=== PATIENT | female | born 1985 | race Caucasian/White ===

== ENCOUNTER 2019-03-23 18:19 | Observation (INO) ==
[2019-03-23 19:23] LABS: Bilirubin,Urine Negative (Negative); Blood,Urine Small (Negative); Clarity,Urine Cloudy (Clear); Color,Urine Yellow (Yellow); Glucose,Urine (UA) Normal (Normal); Ketones,Urine Negative (Negative); Leukocyte Esterase,Urine Negative (Negative); Nitrite,Urine Negative (Negative); PH,Urine 6.5 pH Units (5.0-8.0); Protein,Urine Negative (Neg-Trace); Specific Gravity,Urine 1.024 (1.010-1.025); Urobilinogen,Urine Normal (Normal)
[2019-03-23 19:24] LABS: Bacteria,Urine Few per hpf (None-Few); Hyaline Casts,Urine None Seen per lpf (None-Few); Squamous Epithelial Cell,Urine Many per lpf (None-Few)
[2019-03-23 19:32] LABS: Amphetamine Screen,Urine Negative ng/mL (Cutoff=1000); Barbiturate Screen,Urine Negative ng/mL (Cutoff=200); Benzodiazepines Screen,Urine Negative ng/mL (Cutoff=200); Cannabinoid Screen,Urine Negative ng/mL (Cutoff = 50); Cocaine Screen,Urine Negative ng/mL (Cutoff= 300); Opiate Screen,Urine Negative ng/mL (Cutoff=300); Phencyclidine Screen,Urine Negative ng/mL (Cutoff=25)
[2019-03-23 19:42] LABS: Calcium Oxalate Crystals,Urine Present; RBC,Urine 0-3 per hpf (0-3)
== END 2019-03-23 20:16 | disposition home or self-care (01) ==
LOC: 1NENULAB
PROVIDERS: ADMIT Advanced Practice Midwife; ATTEND Advanced Practice Midwife

== ENCOUNTER 2019-03-26 18:40 | Observation (INO) ==
[2019-03-26] MEDS ORDERED: Ringers Solution, Lactated 1,000 ML IVC ONE (19:02)
[2019-03-26 19:16] LABS: Bilirubin,Urine Negative (Negative); Blood,Urine Small (Negative); Clarity,Urine Clear (Clear); Color,Urine Yellow (Yellow); Glucose,Urine (UA) Normal (Normal); Ketones,Urine 15 mg/dL (Negative); Leukocyte Esterase,Urine Negative (Negative); Nitrite,Urine Negative (Negative); PH,Urine 6.5 pH Units (5.0-8.0); Protein,Urine Negative (Neg-Trace); Urobilinogen,Urine Normal (Normal)
[2019-03-26 19:18] LABS: Bacteria,Urine None Seen per hpf (None-Few); Hyaline Casts,Urine None Seen per lpf (None-Few); RBC,Urine 0-3 per hpf (0-3); Squamous Epithelial Cell,Urine Many per lpf (None-Few); WBC,Urine 0-3 per hpf (0-3)
[2019-03-26 19:27] LABS: Amphetamine Screen,Urine Negative ng/mL (Cutoff=1000); Barbiturate Screen,Urine Negative ng/mL (Cutoff=200); Benzodiazepines Screen,Urine Negative ng/mL (Cutoff=200); Cannabinoid Screen,Urine Negative ng/mL (Cutoff = 50); Cocaine Screen,Urine Negative ng/mL (Cutoff= 300); Opiate Screen,Urine Negative ng/mL (Cutoff=300); Phencyclidine Screen,Urine Negative ng/mL (Cutoff=25)
[2019-03-26] MEDS ORDERED: Ondansetron 4 MG/2 ML VIAL IVP PRN (19:56)
[2019-03-26] MEDS ORDERED: Ondansetron 4 MG/2 ML VIAL ONE (19:59)
[2019-03-26] MEDS: *HR* HYDROmorphone (PF) 1 MG/ML SYRINGE IVP PRN (20:09)
[2019-03-26] MEDS ORDERED: Acetaminophen 325 MG TABLET PO PRN (20:28)
[2019-03-26 20:33] LABS: Basophils # 0.1 K/mcL (0.0-0.2); Basophils % 0.3 %; Eosinophils # 0.1 K/mcL (0.0-0.6); Eosinophils % 0.3 %; Hemoglobin 12.6 g/dL (11.5-15.4); Immature Granulocytes % 0.9 % (0-4); Lymphocytes # 1.5 K/mcL (0.6-4.6); Lymphocytes % 9.4 %; Mean Corpuscular HGB Conc 34.1 g/dL (31.6-35.5); Mean Corpuscular Hemoglobin 33.7 pg (28.0-33.3); Mean Corpuscular Volume 98.9 fL (83.0-100.0); Mean Platelet Volume 9.3 fL (9.4-12.4); Monocytes % 6.4 %; Neutrophils # 13.4 K/mcL (1.6-8.9); Platelet Count 257 K/mcL (140-400); Red Blood Count 3.74 M/mcL (3.82-4.97); Segmented Neutrophils % 82.7 %; White Blood Count 16.2 K/mcL (4.3-11.1)
[2019-03-26 20:53] LABS: Alanine Aminotransferase 12 Units/L (7-52); Albumin 3.6 g/dL (3.5-5.7); Albumin/Globulin Ratio 1.2 (1.1-2.2); Alkaline Phosphatase 67 Units/L (34-104); Aspartate Amino Transferase 17 Units/L (13-39); BUN/Creatinine Ratio 12 (6-26); Bilirubin,Total 0.3 mg/dL (0.3-1.0); Blood Urea Nitrogen 9 mg/dL (6-20); Calcium 9.3 mg/dL (8.6-10.3); Carbon Dioxide 24 mEq/L (23-29); Chloride 104 mEq/L (98-107); Globulin 3.1 g/dL (2.4-3.5); Glucose 81 mg/dL (70-105); Osmolality,Calculated 280 (280-300); Potassium 3.7 mEq/L (3.5-5.1); Sodium 136 mEq/L (136-145); Total Protein 6.7 g/dL (6.4-8.9); eGFR For African Americans > 60 (> 60); eGFR For Non-African Americans > 60 (> 60)
[2019-03-26] MEDS ORDERED: Ringers Solution, Lactated 1,000 ML ONE (22:09)
[2019-03-27] MEDS: *HR* HYDROmorphone (PF) 1 MG/ML SYRINGE IVP PRN ×2 (02:40→13:52)
[2019-03-27] MEDS: Ringers Solution, Lactated 1,000 ML IVC SCH ×5 (05:40→20:05)
--- NOTE | 2019-03-27 09:29 | OB/GYN History & Physical ---
Date of Encounter: 03/27/19 Time of Encounter: 09:11 History of Present Illness Chief complaint: flank pain HPI: Ms. Aguilera is a 33 year old female has a past medical history of migraines who is a at 34 weeks [address] day [address] Mahmood, presenting with acute low back pain that radiates around her left flank into her groin. Upon arrival patient states that she had some bloody urination, nausea, nb/nb vomiting x5, subjective fevers and chills. Her pain was an 8 out of 10 and intermittent and described as stabbing and burning. Nothing made it better, nothing made it worse. Patient was recently seen on 03/23 and diagnosed with acute cystitis with hematuria and prescribed Macrobid. Since arrival patient has received IV Dilaudid, Zofran, and IV fluids her pain is now 0 out of 10 she no longer has blood in her urine, Past Med Surg Social Fam HX - Past Medical History Attestation: Yes The following information was validated with the patient. Medical history: migraine Additional medical history: pancreatitis Psychiatric history: no psych history - Past Surgical History Surgical History: cholecystectomy - Social History Smoking Status: Former smoker Smokeless Tobacco Status: No Alcohol use: none Drug use: none - Family History Mother Family Member Ethnicity: Non- Living Status: Still Living Hx Family Cardiac Disorders: No Hx Family Respiratory Disorders: No Hx Family Cancer: No Hx Family GI Disorders: No Hx Family Endocrine Disorder: No Hx Family Neuromuscular Disorders: No Hx Family Neurologic Disorders: No Hx Family HEENT Disorders: No Hx Family Autoimmune Disorders: No Obstetrical History - Pregnancies : 1 Para: 0 Medications and Allergies Pnv No.95/Ferrous Fum/Folic AC [ Caplet] 1 each PO DAILY 09/04/18 [History] Aspirin 81 mg PO DAILY 09/27/18 [History] SUMAtriptan succinate [Imitrex] 25 mg PO Q2H PRN 01/20/19 [History] Nitrofurantoin Monohyd/M-Cryst [Macrobid 100 mg Capsule] 100 mg PO BID #14 capsule 03/23/19 [Rx] Allergy/AdvReac Type Severity Reaction Status Date / Time No Known Allergies Allergy Verified 03/23/19 18:55 Review of System OB All systems PM: reviewed and no additional remarkable complaints except as stated - Constitutional Constitutional ROS IM: chills, fever(s), headache(s) - Cardiovascular Cardiovascular: no chest pain, no diaphoresis, no edema, no pedal edema, no syncope - Respiratory Respiratory: no cough, no dyspnea - Gastrointestinal Gastrointestinal: nausea, vomiting, no abdominal pain, no change in bowel habits, no diarrhea - Genitourinary Genitourinary: dysuria, flank pain, hematuria, pelvic pain, no urinary frequency, no urinary incontinence Exam - Vital Signs Vital signs: Initial Vital Signs Temp Pulse Resp BP Pulse Ox 97.9 F 67 15 109/52 100 03/27/19 02:40 03/27/19 02:40 03/27/19 02:40 03/27/19 02:40 03/27/19 02:40 - Constitutional Constitutional: well developed, well nourished, no acute distress, obese - HEENT HEENT: Normocephaly, Mucus Membranes Moist - Neck Neck exam: full ROM - Lungs Respiratory exam: CTAB - Cardiovascular Cardiovascular exam: RRR, +S1, +S2 - Abdomen Abdomen: Present: gravid, non tender - Extremities Extremities exam: full ROM - Comments Comments: No CVA tenderness, no tenderness to palpation over the bladder Results Result Diagrams: 03/26/19 20:07 03/26/19 20:07 Abnormal lab results WBC 16.2 K/mcL (4.3-11.1) H 03/26/19 20:07 RBC 3.74 M/mcL (3.82-4.97) L 03/26/19 20:07 MCH 33.7 pg (28.0-33.3) H 03/26/19 20:07 MPV 9.3 fL (9.4-12.4) L 03/26/19 20:07 Neutrophils # 13.4 K/mcL (1.6-8.9) H 03/26/19 20:07 Urine Ketones 15 mg/dL (Negative) H 03/26/19 19:12 Urine Blood Small (Negative) H 03/26/19 19:12 Ur Squamous Epith Cells Many per lpf (None-Few) H 03/26/19 19:12 All other labs normal. - VTE Reasons for not Prescribing Prophylaxis: Treatment not Indicated - Low risk for VTE Documentation of Mechanical Device: Intermittent pneumatic compression device
[2019-03-27] MEDS: *HR* OxyCODONE/APAP 5/325 TABLET PO PRN ×2 (11:52→20:05)
[2019-03-27 13:16] LABS: Basophils % 0.4 %; Eosinophils # 0.1 K/mcL (0.0-0.6); Eosinophils % 1.4 %; Hematocrit 34.1 % (35.3-44.9); Hemoglobin 11.1 g/dL (11.5-15.4); Lymphocytes # 1.4 K/mcL (0.6-4.6); Lymphocytes % 17.7 %; Mean Corpuscular HGB Conc 32.6 g/dL (31.6-35.5); Mean Corpuscular Hemoglobin 33.5 pg (28.0-33.3); Mean Platelet Volume 9.3 fL (9.4-12.4); Monocytes # 0.6 K/mcL (0.0-1.3); Monocytes % 7.7 %; Neutrophils # 5.8 K/mcL (1.6-8.9); Platelet Count 232 K/mcL (140-400); Red Blood Count 3.31 M/mcL (3.82-4.97); Red Cell Distribution Width 13.1 % (11.5-14.5); Segmented Neutrophils % 71.8 %; White Blood Count 8.1 K/mcL (4.3-11.1)
[2019-03-27 13:35] LABS: Alanine Aminotransferase 10 Units/L (7-52); Albumin 3.2 g/dL (3.5-5.7); Albumin/Globulin Ratio 1.2 (1.1-2.2); Alkaline Phosphatase 59 Units/L (34-104); Aspartate Amino Transferase 17 Units/L (13-39); BUN/Creatinine Ratio 10 (6-26); Bilirubin,Total 0.5 mg/dL (0.3-1.0); Blood Urea Nitrogen 6 mg/dL (6-20); Calcium 8.7 mg/dL (8.6-10.3); Carbon Dioxide 26 mEq/L (23-29); Chloride 105 mEq/L (98-107); Globulin 2.6 g/dL (2.4-3.5); Glucose 76 mg/dL (70-105); Osmolality,Calculated 278 (280-300); Potassium 3.5 mEq/L (3.5-5.1); Sodium 136 mEq/L (136-145); Total Protein 5.8 g/dL (6.4-8.9); eGFR For African Americans > 60 (> 60); eGFR For Non-African Americans > 60 (> 60)
[2019-03-27] MEDS ORDERED: Ondansetron 4 MG/2 ML VIAL IVP ONE (17:38)
--- NOTE | 2019-03-27 17:54 | Event Note ---
Date of Encounter: 03/27/19 Time of Encounter: 17:52 Pt was notified that she will be stay overnight for pain and nausea management. She is agreeable to this plan. If in pain tomorrow in the AM we will consult Urology. Currently her pain is an 3/10, 3.5 hrs after her last dose of dilauid. She is still complaining of nausea, but no vomiting. US retroperitneium was negative for hydro or stones.
[2019-03-28] MEDS: Ringers Solution, Lactated 1,000 ML IVC SCH (08:02)
[2019-03-28 08:45] VITALS: BP 127/84
--- NOTE | 2019-03-28 09:16 | Discharge Summary ---
Date of Encounter: 03/28/19 Time of Encounter: 09:17 - Discharge Diagnosis (1) 34 weeks gestation of Priority: Primary Status: Acute Comments: admitted for observation and pain control for possible kidney stone Patient feeling better today and ready for discharge home patient scheduled Sunday with Dr. Mahmood. - Discharge Medications Prescriptions: New Acetaminophen [Tylenol] 650 mg PO Q6H PRN tablet PRN Reason: Fever or moderate pain 3-7 Continued Nitrofurantoin Monohyd/M-Cryst [Macrobid 100 mg Capsule] 100 mg PO BID #14 capsule Pnv No.95/Ferrous Fum/Folic AC [ Caplet] 1 each PO DAILY Aspirin 81 mg PO DAILY SUMAtriptan succinate [Imitrex] 25 mg PO Q2H PRN PRN Reason: Migraine Headache Home Medications: Pnv No.95/Ferrous Fum/Folic AC [ Caplet] 1 each PO DAILY 09/04/18 [History] Aspirin 81 mg PO DAILY 09/27/18 [History] SUMAtriptan succinate [Imitrex] 25 mg PO Q2H PRN 01/20/19 [History] Nitrofurantoin Monohyd/M-Cryst [Macrobid 100 mg Capsule] 100 mg PO BID #14 capsule 03/23/19 [Rx] Acetaminophen [Tylenol] 650 mg PO Q6H PRN tablet 03/28/19 [Rx] Allergies/Adverse Reactions: Allergy/AdvReac Type Severity Reaction Status Date / Time No Known Allergies Allergy Verified 03/23/19 18:55 Data Procedures and tests throughout hospitalization: Laboratory Tests 03/26/19 03/26/19 03/26/19 19:12 19:12 19:52 WBC RBC Hgb Hct MCV MCH MCHC RDW Plt Count MPV Immature Gran % Seg Neutrophils % Lymphocytes % Monocytes % Eosinophils % Basophils % Neutrophils # Lymphocytes # Monocytes # Eosinophils # Basophils # Sodium Potassium Chloride Carbon Dioxide BUN Creatinine Est GFR ( Amer) Est GFR (Non-Af Amer) BUN/Creatinine Ratio Glucose Calculated Osmolality Calcium Total Bilirubin AST ALT Alkaline Phosphatase Serum Total Protein Albumin Globulin Albumin/Globulin Ratio Urine Color Yellow Urine Clarity Clear Urine pH 6.5 Ur Specific Lanse 1.020 Urine Protein Negative Urine Glucose (UA) Normal Urine Ketones 15 H Urine Blood Small H Urine Nitrite Negative Urine Bilirubin Negative Urine Urobilinogen Normal Ur Leukocyte Esterase Negative Urine Microscopic RBC 0-3 Urine Microscopic WBC 0-3 Ur Squamous Epith Cells Many H Urine Bacteria None Seen Hyaline Casts None Seen Ur Culture Indicated? NO Urine Opiates Screen Negative Ur Buprenorphine Scrn Negative Ur Barbiturates Screen Negative Ur Phencyclidine Scrn Negative Ur Amphetamines Screen Negative U Benzodiazepines Scrn Negative Urine Cocaine Screen Negative U Marijuana (THC) Screen Negative Ur Drug Screen Interp See Below Specimen Rejected Volume 03/26/19 03/26/19 03/27/19 20:07 20:07 12:46 WBC 16.2 H RBC 3.74 L Hgb 12.6 Hct 37.0 MCV 98.9 MCH 33.7 H MCHC 34.1 RDW 13.0 Plt Count 257 MPV 9.3 L Immature Gran % 0.9 Seg Neutrophils % 82.7 Lymphocytes % 9.4 Monocytes % 6.4 Eosinophils % 0.3 Basophils % 0.3 Neutrophils # 13.4 H Lymphocytes # 1.5 Monocytes # 1.0 Eosinophils # 0.1 Basophils # 0.1 Sodium 136 136 Potassium 3.7 3.5 Chloride 104 105 Carbon Dioxide 24 26 BUN 9 6 Creatinine 0.75 0.61 Est GFR ( Amer) > 60 > 60 Est GFR (Non-Af Amer) > 60 > 60 BUN/Creatinine Ratio 12 10 Glucose 81 76 Calculated Osmolality 280 278 L Calcium 9.3 8.7 Total Bilirubin 0.3 0.5 AST 17 17 ALT 12 10 Alkaline Phosphatase 67 59 Serum Total Protein 6.7 5.8 L Albumin 3.6 3.2 L Globulin 3.1 2.6 Albumin/Globulin Ratio 1.2 1.2 Urine Color Urine Clarity Urine pH Ur Specific [place] Urine Protein Urine Glucose (UA) Urine Ketones Urine Blood Urine Nitrite Urine Bilirubin Urine Urobilinogen Ur Leukocyte Esterase Urine Microscopic RBC Urine Microscopic WBC Ur Squamous Epith Cells Urine Bacteria Hyaline Casts Ur Culture Indicated? Urine Opiates Screen Ur Buprenorphine Scrn Ur Barbiturates Screen Ur Phencyclidine Scrn Ur Amphetamines Screen U Benzodiazepines Scrn Urine Cocaine Screen U Marijuana (THC) Screen Ur Drug Screen Interp Specimen Rejected 03/27/19 12:46 WBC 8.1 RBC 3.31 L Hgb 11.1 L D Hct 34.1 L MCV 103.0 H MCH 33.5 H MCHC 32.6 RDW 13.1 Plt Count 232 MPV 9.3 L Immature Gran % 1.0 Seg Neutrophils % 71.8 Lymphocytes % 17.7 Monocytes % 7.7 Eosinophils % 1.4 Basophils % 0.4 Neutrophils # 5.8 Lymphocytes # 1.4 Monocytes # 0.6 Eosinophils # 0.1 Basophils # 0.0 Sodium Potassium Chloride Carbon Dioxide BUN Creatinine Est GFR ( Amer) Est GFR (Non-Af Amer) BUN/Creatinine Ratio Glucose Calculated Osmolality Calcium Total Bilirubin AST ALT Alkaline Phosphatase Serum Total Protein Albumin Globulin Albumin/Globulin Ratio Urine Color Urine Clarity Urine pH Ur Specific [place]se Urine Protein Urine Glucose (UA) Urine Ketones Urine Blood Urine Nitrite Urine Bilirubin Urine Urobilinogen Ur Leukocyte Esterase Urine Microscopic RBC Urine Microscopic WBC Ur Squamous Epith Cells Urine Bacteria Hyaline Casts Ur Culture Indicated? Urine Opiates Screen Ur Buprenorphine Scrn Ur Barbiturates Screen Ur Phencyclidine Scrn Ur Amphetamines Screen U Benzodiazepines Scrn Urine Cocaine Screen U Marijuana (THC) Screen Ur Drug Screen Interp Specimen Rejected Labs on day of discharge: Labs from last 24 hours 03/27/19 03/27/19 12:46 12:46 WBC 8.1 RBC 3.31 L Hgb 11.1 L D Hct 34.1 L MCV 103.0 H MCH 33.5 H MCHC 32.6 RDW 13.1 Plt Count 232 MPV 9.3 L Immature Gran % 1.0 Seg Neutrophils % 71.8 Lymphocytes % 17.7 Monocytes % 7.7 Eosinophils % 1.4 Basophils % 0.4 Neutrophils # 5.8 Lymphocytes # 1.4 Monocytes # 0.6 Eosinophils # 0.1 Basophils # 0.0 Sodium 136 Potassium 3.5 Chloride 105 Carbon Dioxide 26 BUN 6 Creatinine 0.61 Est GFR ( Amer) > 60 Est GFR (Non-Af Amer) > 60 BUN/Creatinine Ratio 10 Glucose 76 Calculated Osmolality 278 L Calcium 8.7 Total Bilirubin 0.5 AST 17 ALT 10 Alkaline Phosphatase 59 Serum Total Protein 5.8 L Albumin 3.2 L Globulin 2.6 Albumin/Globulin Ratio 1.2 - Impressions ITS Impressions Retroperitoneum Ultrasound 03/27/19 15:45 IMPRESSION: No urinary tract stones or hydronephrosis. Mild postvoid residual of the bladder. No acute abnormality of the bladder. Bilateral ureteral jets documented. D/ / Trey Guy MD / Trey Guy MD Interpreting Provider: Trey Guy MD Date of admission: 03/26/19 18:40 Primary care physician: PCP NONE Discharging clinician: Denise Parnell Anticipated date of discharge: 03/28/19 - Patient Status Disposition: Home, Self-Care Condition: Good - Discharge Instructions Follow Up With: NONE,PCP [Primary Care Provider] - Angela Mahmood MD [Partnered Physician] - - Diet and Activity Activity: increase activity as tolerated Diet: regular diet Hospital Course [employer] Hospital course: Ms. Aguilera is a 33 year old female @ 34w3d presented with acute low back pain that radiates around her left flank into her groin. Upon arrival patient states that she had some bloody urination, nausea, nb/nb vomiting x5, subjective fevers and chills. Her pain was an 8 out of 10 and intermittent and described as stabbing and burning. Nothing made it better, nothing made it worse. Patient was recently seen on 03/23 and diagnosed with acute cystitis with hematuria and prescribed Macrobid. Since arrival patient has received IV Dilaudid, Zofran, and IV fluids her pain is now 0 out of 10 she no longer has blood in her urine. Patient reports feeling much better now. She reports good movement. Denies CTX, LOF or VB. She will continue macrobid as prescribed. Will follow up with Dr. Mahmood on Sunday. Time Attestation: Total time spent providing and/or coordinating discharge services: Time Spent: Less than 30 minutes Exam - Constitutional Vitals: Temp Pulse Resp BP Pulse Ox 98.8 F 66 18 127/84 99 03/28/19 08:43 03/28/19 08:43 03/28/19 08:43 03/28/19 08:43 03/28/19 08:43 General appearance IM: A&O X 3, pleasant, answers questions appropriately - Respiratory Respiratory exam: Present: CTAB - Cardiovascular Cardiovascular exam IM: Present: RRR, +S1, +S2 - GI/Abdominal GI/Abdominal exam IM: normal bowel sounds - Extremities Exam Extremities exam IM: Present: full ROM, normal capillary refill, normal inspection - Neurological Exam Neurological exam: alert, oriented X3, reflexes normal - Other Additional findings: FHR 125 bpm - VTE Reasons for not Prescribing Prophylaxis: Treatment not Indicated - Low risk for VTE Documentation of Mechanical Device: Intermittent pneumatic compression device
== END 2019-03-28 10:58 | disposition home or self-care (01) ==
LOC: 1NENULAB → 1NENUPED 03-27 00:30 → 1NENUOBS 03-27 12:37
PROVIDERS: ADMIT Registered Nurse; ATTEND Registered Nurse

== ENCOUNTER 2019-04-30 05:30 | Inpatient (IN) ==
[2019-04-30] MEDS ORDERED: Famotidine 20 MG/2 ML VIAL IVP PRN (05:37)
[2019-04-30] MEDS ORDERED: Ondansetron 4 MG/2 ML VIAL IVP PRN (05:37)
[2019-04-30] MEDS ORDERED: Naloxone 0.4 MG/ML INJ IVP PRN (05:37)
[2019-04-30] MEDS ORDERED: *HR* Nalbuphine 10 MG/ML AMPUL IVP PRN (05:37)
[2019-04-30] MEDS ORDERED: Metoclopramide 10 MG/2 ML VIAL IVP PRN (05:37)
[2019-04-30] MEDS ORDERED: Lidocaine 1% 20 ML MDV INFILT PRN (05:37)
[2019-04-30] MEDS ORDERED: D5% in 0.45% NACL 1,000 ML IVC ONE (06:03)
[2019-04-30 06:05] LABS: Amphetamine Screen,Urine Negative ng/mL (Cutoff=1000); Barbiturate Screen,Urine Negative ng/mL (Cutoff=200); Benzodiazepines Screen,Urine Negative ng/mL (Cutoff=200); Cannabinoid Screen,Urine Negative ng/mL (Cutoff = 50); Cocaine Screen,Urine Negative ng/mL (Cutoff= 300); Opiate Screen,Urine Negative ng/mL (Cutoff=300); Phencyclidine Screen,Urine Negative ng/mL (Cutoff=25)
[2019-04-30 06:17] LABS: Basophils % 0.4 %; Eosinophils # 0.2 K/mcL (0.0-0.6); Eosinophils % 1.9 %; Hematocrit 36.2 % (35.3-44.9); Hemoglobin 12.2 g/dL (11.5-15.4); Immature Granulocytes % 0.6 % (0-4); Lymphocytes # 2.1 K/mcL (0.6-4.6); Lymphocytes % 20.1 %; Mean Corpuscular HGB Conc 33.7 g/dL (31.6-35.5); Mean Corpuscular Hemoglobin 33.1 pg (28.0-33.3); Mean Corpuscular Volume 98.1 fL (83.0-100.0); Mean Platelet Volume 9.7 fL (9.4-12.4); Monocytes # 0.8 K/mcL (0.0-1.3); Neutrophils # 7.1 K/mcL (1.6-8.9); Platelet Count 259 K/mcL (140-400); Red Blood Count 3.69 M/mcL (3.82-4.97); Red Cell Distribution Width 13.2 % (11.5-14.5); White Blood Count 10.2 K/mcL (4.3-11.1)
[2019-04-30] MEDS: miSOPROStol 25 MCG TABLET VG PRN ×2 (06:20→11:21)
[2019-04-30] MEDS: Ringers Solution, Lactated 1,000 ML IVC SCH ×2 (17:46→18:40)
[2019-04-30] MEDS ORDERED: Bupivacaine-MPF 0.25% 10 ML VIAL ONE (18:01)
[2019-04-30] MEDS ORDERED: *HR* FentaNYL (PF) 100 MCG/2 ML VIAL ONE (18:01)
[2019-04-30] MEDS: Epidural Premix (fent/bupiv) 110 ML EP SCH (18:10)
[2019-04-30] MEDS ORDERED: EPHEDrine 50 MG/ML VIAL ONE (18:33)
[2019-04-30] MEDS ORDERED: Oxytocin 20 units/ LR 1000 mL 20 UNIT/1,000 ML BAG IVC SCH (20:00)
[2019-05-01] MEDS: Epidural Premix (fent/bupiv) 110 ML EP SCH (01:14)
[2019-05-01] MEDS ORDERED: 0.9 % Sodium Chloride 1,000 ML ONE (01:54)
[2019-05-01] MEDS ORDERED: Lidocaine/EPI 1:200k 2% PF 20 ML VIAL ONE (03:02)
[2019-05-01] MEDS ORDERED: *HR* Morphine Sulfate/PF 10 MG/10 ML AMPUL ONE (03:03)
[2019-05-01] MEDS ORDERED: *HR* Oxytocin 10 UNIT/ML VIAL IM ONE ×2 (03:03→04:27)
[2019-05-01] MEDS ORDERED: MetroNIDAZOLE 500 MG/100 ML 500 MG/100 ML BAG IVPB ONE (03:07)
[2019-05-01] MEDS ORDERED: cefOXitin 1,000 MG in 0.9 % Sodium Chloride Mini Bag 100 ML IVPB ONE (03:08)
[2019-05-01] MEDS ORDERED: Azithromycin 500 MG in 0.9 % Sodium Chloride 250 ML IVPB ONE (03:09)
[2019-05-01] MEDS ORDERED: Ringers Solution, Lactated 1,000 ML ONE ×2 (03:23→04:27)
[2019-05-01] MEDS ORDERED: *HR* EPINEPHrine 1 MG/10 ML SYRINGE ONE (03:26)
[2019-05-01] MEDS ORDERED: EPHEDrine 50 MG/ML VIAL ONE (03:27)
[2019-05-01] MEDS ORDERED: Ondansetron 4 MG/2 ML VIAL ONE (03:35)
[2019-05-01] MEDS ORDERED: CeFAZolin Premix DUPLEX 2,000 MG/50 ML BAG IVPB ONE (04:00)
[2019-05-01] MEDS ORDERED: Ondansetron 4 MG/2 ML VIAL IVP PRN ×3 (05:14→09:19)
[2019-05-01] MEDS ORDERED: Naloxone 0.4 MG/ML INJ IVP PRN ×2 (05:14→09:19)
[2019-05-01] MEDS ORDERED: Morphine Sulfate 2 MG/ML SYRINGE IVP PRN ×2 (05:14→09:19)
[2019-05-01] MEDS ORDERED: *HR* OxyCODONE/APAP 5/325 TABLET PO PRN ×2 (05:14→09:19)
[2019-05-01] MEDS ORDERED: Ibuprofen 400 MG TABLET PO PRN ×2 (05:14→09:19)
[2019-05-01] MEDS ORDERED: *HR* HYDROmorphone (PF) 1 MG/ML SYRINGE IVP PRN ×2 (05:14→09:19)
[2019-05-01] MEDS ORDERED: Acetaminophen IV 1,000 MG/100 ML INFUS..BTL IVPB ONE (05:19)
[2019-05-01] MEDS ORDERED: cephALEXin 500 MG CAPSULE PO SCH (09:00)
[2019-05-01] MEDS ORDERED: metroNIDAZOLE 500 MG TABLET PO SCH (09:01)
[2019-05-01] MEDS ORDERED: Oxytocin 20 units/ LR 1000 mL 20 UNIT/1,000 ML BAG IVC SCH (09:19)
[2019-05-01] MEDS ORDERED: Metoclopramide 10 MG/2 ML VIAL IVP PRN (09:19)
[2019-05-01] MEDS ORDERED: Rho Immune Globulin 1,500 UNIT SYRINGE IM ONE (09:19)
[2019-05-01] MEDS ORDERED: Simethicone 80 MG TAB.CHEW PO PRN (09:19)
[2019-05-01] MEDS ORDERED: Sennosides 8.6 MG TABLET PO PRN (09:19)
[2019-05-01] MEDS: Prenatal Vit/FA 1 EACH TABLET PO SCH (10:25)
[2019-05-01] MEDS: cephALEXin 500 MG CAPSULE PO SCH ×3 (10:25→19:42)
[2019-05-01] MEDS: metroNIDAZOLE 500 MG TABLET PO SCH ×3 (10:25→19:41)
[2019-05-01] MEDS: Ibuprofen 600 MG TABLET PO PRN ×2 (16:33→22:32)
[2019-05-01] MEDS: *HR* OxyCODONE/APAP 5/325 TABLET PO PRN ×2 (18:08→22:32)
[2019-05-01] MEDS: *HR* Enoxaparin 40 MG/0.4 ML SYRINGE SQ SCH (18:11)
[2019-05-02] MEDS: Ibuprofen 600 MG TABLET PO PRN ×4 (04:48→23:38)
[2019-05-02] MEDS: *HR* OxyCODONE/APAP 5/325 TABLET PO PRN ×5 (04:48→21:16)
[2019-05-02] MEDS: *HR* Enoxaparin 40 MG/0.4 ML SYRINGE SQ SCH ×2 (05:30→17:08)
[2019-05-02 06:08] LABS: Basophils # 0.1 K/mcL (0.0-0.2); Basophils % 0.5 %; Eosinophils # 0.2 K/mcL (0.0-0.6); Eosinophils % 1.5 %; Hematocrit 31.1 % (35.3-44.9); Immature Granulocytes % 0.7 % (0-4); Lymphocytes # 1.7 K/mcL (0.6-4.6); Lymphocytes % 12.7 %; Mean Corpuscular HGB Conc 32.8 g/dL (31.6-35.5); Mean Corpuscular Hemoglobin 33.3 pg (28.0-33.3); Mean Corpuscular Volume 101.6 fL (83.0-100.0); Mean Platelet Volume 9.7 fL (9.4-12.4); Monocytes # 0.8 K/mcL (0.0-1.3); Monocytes % 6.1 %; Neutrophils # 10.4 K/mcL (1.6-8.9); Platelet Count 193 K/mcL (140-400); Red Blood Count 3.06 M/mcL (3.82-4.97); Red Cell Distribution Width 13.5 % (11.5-14.5); Segmented Neutrophils % 78.5 %; White Blood Count 13.2 K/mcL (4.3-11.1)
[2019-05-02 06:12] LABS: Hemoglobin 10.2 g/dL (11.5-15.4)
[2019-05-02] MEDS: Prenatal Vit/FA 1 EACH TABLET PO SCH (07:52)
[2019-05-02] MEDS: cephALEXin 500 MG CAPSULE PO SCH ×3 (07:53→21:16)
[2019-05-02] MEDS: metroNIDAZOLE 500 MG TABLET PO SCH ×3 (07:53→21:16)
[2019-05-03] MEDS: *HR* OxyCODONE/APAP 5/325 TABLET PO PRN ×2 (01:58→06:23)
[2019-05-03] MEDS: *HR* Enoxaparin 40 MG/0.4 ML SYRINGE SQ SCH (06:20)
[2019-05-03] MEDS: Ibuprofen 600 MG TABLET PO PRN (06:23)
[2019-05-03 07:49] VITALS: BP 118/78
[2019-05-03] MEDS: Prenatal Vit/FA 1 EACH TABLET PO SCH (09:06)
[2019-05-03] MEDS: metroNIDAZOLE 500 MG TABLET PO SCH (09:06)
[2019-05-03] MEDS: cephALEXin 500 MG CAPSULE PO SCH (09:06)
[2019-05-03] MEDS ORDERED: Methylergonovine 0.2 MG/ML AMPUL IM ONE (12:44)
== END 2019-05-03 12:45 | disposition home or self-care (01) | DRG 540 ==
LOC: 1NENULAB 05:35 → 1NENUOBS 05-01 09:20
PROVIDERS: ADMIT Obstetrics & Gynecology; ATTEND Obstetrics & Gynecology

== ENCOUNTER 2022-01-04 12:31 | Observation (INO) ==
[2022-01-04] MEDS ORDERED: *HR* HYDROcodone/Acet 5/325 mg TABLET PO ONE (14:05)
[2022-01-04] MEDS ORDERED: Ondansetron 4 MG/2 ML VIAL IVP ONE (14:05)
[2022-01-04] MEDS: 0.9 % Sodium Chloride 1,000 ML IVC SCH ×2 (14:55→17:59)
[2022-01-04 15:06] LABS: Basophils # 0.1 K/mcL (0.0-0.2); Basophils % 0.4 %; Eosinophils % 0.3 %; Hematocrit 38.1 % (35.3-44.9); Hemoglobin 12.4 g/dL (11.5-15.4); Immature Granulocytes % 0.3 % (0-4); Lymphocytes # 2.2 K/mcL (0.6-4.6); Lymphocytes % 18.9 %; Mean Corpuscular HGB Conc 32.5 g/dL (31.6-35.5); Mean Corpuscular Hemoglobin 28.2 pg (28.0-33.3); Mean Corpuscular Volume 86.8 fL (83.0-100.0); Mean Platelet Volume 9.4 fL (9.4-12.4); Monocytes # 0.8 K/mcL (0.0-1.3); Monocytes % 6.7 %; Neutrophils # 8.6 K/mcL (1.6-8.9); Platelet Count 302 K/mcL (140-400); Red Blood Count 4.39 M/mcL (3.82-4.97); Red Cell Distribution Width 21.2 % (11.5-14.5); Segmented Neutrophils % 73.4 %; White Blood Count 11.7 K/mcL (4.3-11.1)
[2022-01-04 15:22] LABS: Alanine Aminotransferase 12 Units/L (7-52); Albumin/Globulin Ratio 1.4 (1.1-2.2); Alkaline Phosphatase 42 Units/L (34-104); Aspartate Amino Transferase 13 Units/L (13-39); BUN/Creatinine Ratio 15 (6-26); Bilirubin,Total 0.3 mg/dL (0.3-1.0); Blood Urea Nitrogen 8 mg/dL (6-20); Calcium 9.2 mg/dL (8.6-10.3); Carbon Dioxide 22 mEq/L (23-29); Chloride 102 mEq/L (98-107); Globulin 2.8 g/dL (2.4-3.5); Glucose 86 mg/dL (70-105); Magnesium 1.8 mg/dL (1.6-2.6); Osmolality,Calculated 276 (280-300); Potassium 3.4 mEq/L (3.5-5.1); Sodium 134 mEq/L (136-145); Total Protein 6.8 g/dL (6.4-8.9); eGFR For African Americans > 60 (> 60); eGFR For Non-African Americans > 60 (> 60)
[2022-01-04 15:33] LABS: Bilirubin,Urine Negative (Negative); Blood,Urine Large (Negative); Clarity,Urine Turbid (Clear); Color,Urine Yellow (Yellow); Glucose,Urine (UA) Normal (Normal); Ketones,Urine 80 mg/dL (Negative); Leukocyte Esterase,Urine Negative (Negative); Mucus,Urine Many per lpf (None-Few); Nitrite,Urine Negative (Negative); Protein,Urine 100 mg/dL (Neg-Trace); RBC,Urine TNTC per hpf (0-3); Specific Gravity,Urine > 1.030 (1.010-1.025); Squamous Epithelial Cell,Urine Moderate per hpf (None-Few)
[2022-01-04] MEDS ORDERED: 0.9 % Sodium Chloride 1,000 ML IVC SCH ×2 (16:00)
[2022-01-04] MEDS ORDERED: Acetaminophen 325 MG TABLET PO PRN (16:27)
[2022-01-04] MEDS ORDERED: Naloxone 0.4 MG/ML INJ IVP PRN (16:27)
[2022-01-04] MEDS ORDERED: Ondansetron 4 MG/2 ML VIAL IVP PRN (16:27)
[2022-01-04 16:32] LABS: Thyroid Stimulating Hormone 5.692 mcIU/mL (0.340-5.600)
[2022-01-04 16:56] LABS: Lipase 39 Units/L (11-82)
[2022-01-04] MEDS ORDERED: Ringers Solution, Lactated 1,000 ML IVC SCH (18:00)
[2022-01-04] MEDS ORDERED: Thiamine (B-1) 100 MG in Ringers Solution, Lactated 1,000 ML IVPB ONE (18:10)
[2022-01-04] MEDS: *HR* Promethazine 25 MG/ML VIAL IM SCH (18:39)
[2022-01-04] MEDS: Pyridoxine (B-6) 50 MG TABLET PO SCH (18:40)
[2022-01-04] MEDS: Folic Acid 1 MG TABLET PO SCH (18:40)
[2022-01-04] MEDS: Multivit/Ca/Min/Fe/FA 1 TAB TABLET PO SCH (18:41)
[2022-01-04] MEDS: Metoclopramide 10 MG/2 ML VIAL IVP SCH (22:05)
[2022-01-04] MEDS: Famotidine 20 MG/2 ML VIAL IVP SCH (22:05)
[2022-01-04] MEDS: Pyridoxine (B-6) 25 MG in Ringers Solution, Lactated 1,000 ML IVPB SCH (23:09)
[2022-01-05] MEDS: Ondansetron 4 MG/2 ML VIAL IVP SCH ×2 (00:57→06:17)
[2022-01-05] MEDS: *HR* Promethazine 25 MG/ML VIAL IM SCH ×2 (00:58→06:18)
[2022-01-05 05:34] LABS: Basophils % 0.4 %; Eosinophils % 0.4 %; Hematocrit 32.3 % (35.3-44.9); Immature Granulocytes % 0.3 % (0-4); Lymphocytes # 2.2 K/mcL (0.6-4.6); Lymphocytes % 21.9 %; Mean Corpuscular HGB Conc 32.2 g/dL (31.6-35.5); Mean Corpuscular Hemoglobin 27.7 pg (28.0-33.3); Mean Corpuscular Volume 86.1 fL (83.0-100.0); Mean Platelet Volume 9.6 fL (9.4-12.4); Monocytes # 0.7 K/mcL (0.0-1.3); Neutrophils # 7.2 K/mcL (1.6-8.9); Platelet Count 285 K/mcL (140-400); Red Blood Count 3.75 M/mcL (3.82-4.97); Red Cell Distribution Width 21.1 % (11.5-14.5); White Blood Count 10.2 K/mcL (4.3-11.1)
[2022-01-05 05:35] LABS: Hemoglobin 10.4 g/dL (11.5-15.4)
[2022-01-05 05:59] LABS: BUN/Creatinine Ratio 11 (6-26); Blood Urea Nitrogen 5 mg/dL (6-20); Calcium 8.8 mg/dL (8.6-10.3); Carbon Dioxide 22 mEq/L (23-29); Chloride 106 mEq/L (98-107); Glucose 85 mg/dL (70-105); Magnesium 1.8 mg/dL (1.6-2.6); Osmolality,Calculated 283 (280-300); Potassium 3.4 mEq/L (3.5-5.1); Sodium 138 mEq/L (136-145); eGFR For African Americans > 60 (> 60); eGFR For Non-African Americans > 60 (> 60)
[2022-01-05] MEDS: Metoclopramide 10 MG/2 ML VIAL IVP SCH (09:17)
[2022-01-05] MEDS: Multivit/Ca/Min/Fe/FA 1 TAB TABLET PO SCH ×2 (09:17→09:18)
[2022-01-05] MEDS: Famotidine 20 MG/2 ML VIAL IVP SCH (09:17)
[2022-01-05] MEDS: Folic Acid 1 MG TABLET PO SCH (09:18)
[2022-01-05] MEDS ORDERED: *HR* Promethazine 25 MG/ML VIAL IM SCH (09:30)
[2022-01-05] MEDS: Pyridoxine (B-6) 25 MG in Ringers Solution, Lactated 1,000 ML IVPB SCH (09:32)
[2022-01-05] MEDS: Pyridoxine (B-6) 50 MG TABLET PO SCH (09:41)
[2022-01-05 10:28] VITALS: BP 137/85; PULSE 80; TEMP 98.1; O2SAT 100
== END 2022-01-05 14:30 | disposition home or self-care (01) ==
LOC: EMEROOARM 12:31 → 3BNU 12:31 → SUATTDRO 16:38 → 3BNU 16:55
PROVIDERS: ADMIT Hospitalist; ATTEND Registered Nurse